=== PATIENT | female | born 1965 | race American Indian/Alaskan Native ===

== ENCOUNTER 2016-11-19 16:03 | Inpatient (IN) | payer BC, OTHER ==
[2016-11-19] MEDS ORDERED: ATIVAN ONE (16:08)
[2016-11-19] MEDS ORDERED: KEPPRA 1,000 MG/NS 0.75% 100ML 1,000 MG/100 ML BAG IV ONE ×2 (16:09→16:13)
[2016-11-19] MEDS ORDERED: NACL 0.9% 1000 ML 1,000 ML IV ONE (16:18)
--- NOTE | 2016-11-19 16:23 | Emergency Department Report ---
ED Seizure HPI - General Chief Complaint: Seizure Stated Complaint: SEIZURES Time Seen by Provider: 11/19/16 16:18 Source: family, EMS Mode of arrival: Stretcher Limitations: Altered Mental Status - History of Present Illness Initial Comments: 51-year-old female here with complaint of seizure. Patient has known history of seizures and has had, according to family, 9 seizures today. Each seizure has been approximately 1-2 minutes in length. It is tonic-clonic in nature. Prior to this today she's not had a seizure for over a month. She is on 3 seizure medications. She is followed by neurologist in [place]. According to family she states that she has not been feeling well today. No fevers chills nausea vomiting. Arrival she is postictal. EMS gave her 2 mg of Ativan in the ambulance. MD Complaint: seizure -: Sudden Description of Episode: tonic-clonic movement Witnessed:: Yes Seizure History: known seizure disorder, compliant with medication Place: home Possible Precipitating Event: none Associated Symptoms: malaise, tongue injury. denies: chest pain, confusion, cough, diaphoresis, fever/chills, loss of appetite, rash, shortness of breath, weakness Treatments Prior to Arrival: none - Related Data Allergies Allergy/AdvReac Type Severity Reaction Status Date / Time No Known Allergies Allergy Verified 11/19/16 16:13 ED Review of Systems ROS: Stated complaint: SEIZURES Other details as noted in HPI Comment: Unobtainable due to pts medical conditions ED Past Medical Hx - Past Medical History Hx Hypertension: Yes Hx Seizures: Yes - Family History Family history: no significant - Social History Smoking Status: Unknown if ever smoked ED Physical Exam - General Limitations: Altered Mental Status General appearance: obtunded - Head Head exam: Present: atraumatic, normocephalic - Eye Eye exam: Present: PERRL, EOMI - ENT ENT exam: Present: normal exam - Neck Neck exam: Present: normal inspection - Respiratory Respiratory exam: Present: normal lung sounds bilaterally, other (initial hypoxia, jaw thrust performed on arrival). Absent: respiratory distress, wheezes, rales - Cardiovascular Cardiovascular Exam: Present: normal rhythm, tachycardia. Absent: bradycardia - GI/Abdominal GI/Abdominal exam: Present: soft - Back Exam Back exam: Present: normal inspection - Neurological Exam Neurological exam: Present: alert, oriented X3 - Skin Skin exam: Absent: warm, dry ED Course Vital Signs 11/19/16 11/19/16 16:09 16:45 Temperature 98.3 F 98.3 F Pulse Rate 102 H 95 H Respiratory 16 15 Rate Blood Pressure 125/79 Blood Pressure 117/76 [Right] O2 Sat by Pulse 99 100 Oximetry ED Medical Decision Making - Lab Data Result diagrams: 11/19/16 Unknown 11/19/16 Unknown Laboratory Results - last 24 hr 11/19/16 11/19/16 11/19/16 16:15 16:15 Unknown WBC 9.9 RBC 4.48 Hgb 9.9 L Hct 32.1 MCV 72 L MCH 22 L MCHC 31 RDW 16.3 H Plt Count 222 Seg Neutrophils % Cable Supervisor Sodium Potassium Chloride Carbon Dioxide Anion Gap BUN Creatinine Estimated GFR BUN/Creatinine Ratio Glucose Calcium Total Bilirubin ALT Alkaline Phosphatase Total Protein Albumin Albumin/Globulin Ratio Urine Color Straw Urine Turbidity Clear Urine pH 5.0 Ur Specific [place] 1.013 Urine Protein 100 mg/dl Urine Glucose (UA) Neg Urine Ketones Tr Urine Blood Lg Urine Nitrite Neg Urine Bilirubin Neg Urine Urobilinogen < 2.0 Ur Leukocyte Esterase Neg Urine WBC (Auto) 2.0 Urine RBC (Auto) 1.0 U Epithel Cells (Auto) 1.0 Urine Bacteria (Auto) 1+ Urine Mucus Few Urine Opiates Screen Presumptive negative Urine Methadone Screen Presumptive negative Ur Barbiturates Screen Presumptive negative Ur Phencyclidine Scrn Presumptive negative Ur Amphetamines Screen Presumptive negative U Benzodiazepines Scrn Presumptive negative Urine Cocaine Screen Presumptive negative U Marijuana (THC) Screen Presumptive negative Drugs of Abuse Note Disclamer Plasma/Serum Alcohol 11/19/16 11/19/16 Unknown Unknown WBC RBC Hgb Hct MCV MCH MCHC RDW Plt Count Seg Neutrophils % Sodium 139 Potassium 4.6 Chloride 99.8 Carbon Dioxide 15 L Anion Gap 29 BUN 10 Creatinine 1.1 Estimated GFR > 60 BUN/Creatinine Ratio 9.09 Glucose 90 Calcium 8.8 Total Bilirubin 0.20 ALT 13 Alkaline Phosphatase 62 Total Protein 7.9 Albumin 4.6 Albumin/Globulin Ratio 1.4 Urine Color Urine Turbidity Urine pH Ur Specific [place] Urine Protein Urine Glucose (UA) Urine Ketones Urine Blood Urine Nitrite Urine Bilirubin Urine Urobilinogen Ur Leukocyte Esterase Urine WBC (Auto) Urine RBC (Auto) U Epithel Cells (Auto) Urine Bacteria (Auto) Urine Mucus Urine Opiates Screen Urine Methadone Screen Ur Barbiturates Screen Ur Phencyclidine Scrn Ur Amphetamines Screen U Benzodiazepines Scrn Urine Cocaine Screen U Marijuana (THC) Screen Drugs of Abuse Note Plasma/Serum Alcohol < 0.01 - Medical Decision Making Patient is a 51-year-old female with known seizure disorder here with seizures today. She's not had a seizure for over a month. According to family she's been taking her medications. On arrival she is postictal and minimally responsive. She received 2 mg of Ativan by EMS. I initiated a dose of 1000 mg of Keppra IV. I do not suspect that she takes this medication long-term. According to family states Vimpat and 2 other seizure medications that they did not remember. Plan to check labs UA chest x-ray and likely admit given multiple seizures today. Labs are essentially unremarkable. Patient does have a slightly low bicarbonate level which is likely related to multiple seizures. Plan to admit the patient to the hospitalist service. She is still fairly somnolent at this point. Portions of this chart were dictated with dictation software. There may be dictation errors contained within this note. Critical care attestation.: If time is entered above; I have spent that time in minutes in the direct care of this critically ill patient, excluding procedure time. ED Disposition Clinical Impression: Seizure Disposition: [id number] OP ADMIT IP TO THIS HOSP Is pt being admited?: Yes Condition: Stable Referrals: PRIMARY CARE, [Primary Care Provider] - 3-5 Days
[2016-11-19 16:24] LABS: Urine Drugs of Abuse Note Disclamer
[2016-11-19 16:34] LABS: Bacteria,Urine 1+ /HPF (Negative); Bilirubin,Urine NEG (Negative); Blood,Urine LG (Negative); Ketones,Urine TR mg/dL (Negative); Leukocyte Esterase,Urine NEG (Negative); Mucus,Urine FEW /HPF; Nitrite,Urine NEG (Negative); Urobilinogen,Urine < 2.0 mg/dL (<2.0)
[2016-11-19 16:52] LABS: Hematocrit 32.1 % (30.3-42.9); Hemoglobin 9.9 gm/dl (10.1-14.3); Mean Corpuscular HGB Conc 31 % (30-34); Mean Corpuscular Volume 72 fl (79-97); Platelet Count 222 K/mm3 (140-440); Red Blood Count 4.48 M/mm3 (3.65-5.03); Red Cell Distribution Width 16.3 % (13.2-15.2); White Blood Count 9.9 K/mm3 (4.5-11.0)
[2016-11-19 16:54] LABS: Mean Corpuscular Hemoglobin 22 pg (28-32)
[2016-11-19 17:13] LABS: Alanine Aminotransferase 13 units/L (7-56); Albumin 4.6 g/dL (3.9-5); Albumin/Globulin Ratio 1.4 %; Alkaline Phosphatase 62 units/L (35-129); Anion Gap 29 mmol/L; BUN/Creatinine Ratio 9.09; Blood Urea Nitrogen 10 mg/dL (7-17); Calcium 8.8 mg/dL (8.4-10.2); Carbon Dioxide 15 mmol/L (22-30); Chloride 99.8 mmol/L (98-107); Glucose 90 mg/dL (65-100); Potassium 4.6 mmol/L (3.6-5.0); Sodium 139 mmol/L (137-145); Total Protein 7.9 g/dL (6.3-8.2)
[2016-11-19 17:27] LABS: Basophils % (Manual) 0 % (0.0-1.8); Blastocytes % (Manual) 0 %; Eosinophils % (Manual) 0 % (0.0-4.3)
[2016-11-19 17:29] LABS: Elliptocytes 1+; Ovalocytes Few
[2016-11-19 17:31] LABS: Anisocytosis 1+; Diff Status Complete
--- NOTE | 2016-11-19 18:17 | XRay Report ---
FINAL REPORT PROCEDURE: Chest. TECHNIQUE: Portable AP view. HISTORY: Seizure, altered mental status. COMPARISON: No prior studies are available for comparison. FINDINGS: The patient is rotated to the right. The heart size is normal. There is mild tortuosity of the thoracic aorta. The lungs are grossly clear. There are no pleural effusions. The soft tissues and regional skeleton are unremarkable. IMPRESSION: No evidence of acute disease.
[2016-11-19] MEDS ORDERED: AMBIEN PO PRN (20:09)
[2016-11-19] MEDS ORDERED: DILAUDID IV PRN (20:09)
[2016-11-19] MEDS ORDERED: ZOFRAN IV PRN (20:09)
[2016-11-19] MEDS ORDERED: MILK OF MAGNESIA PO PRN (20:09)
[2016-11-19] MEDS ORDERED: DULCOLAX PR PRN (20:09)
[2016-11-19] MEDS ORDERED: TYLENOL PO PRN (20:09)
[2016-11-19] MEDS ORDERED: PERCOCET 5/325 PO PRN (20:09)
--- NOTE | 2016-11-19 20:09 | History and Physical Report ---
History of Present Illness Date of examination: 11/19/16 Date of admission: 11/19/16 Chief complaint: Seizures recurrent today History of present illness: History of Present Illness 51-year-old female here with complaint of seizure. Patient has known history of seizures and has had, according to family, 9 seizures today. Each seizure has been approximately 1-2 minutes in length. It is tonic-clonic in nature. Prior to this today she's not had a seizure for over a month. She is on 3 seizure medications. She is followed by neurologist in [place]. According to family she states that she has not been feeling well today. No fevers chills nausea vomiting. Arrival she is postictal. EMS gave her 2 mg of Ativan in the ambulance. MD Complaint: seizure -: Sudden Description of Episode: tonic-clonic movement Witnessed:: Yes Seizure History: known seizure disorder, compliant with medication Place: home Possible Precipitating Event: none Associated Symptoms: malaise, tongue injury. denies: chest pain, confusion, cough, diaphoresis, fever/chills, loss of appetite, rash, shortness of breath, weakness Treatments Prior to Arrival: none Past Medical History Hx Hypertension: Yes Hx Seizures: Yes - Family History Family history: no significant - Social History Smoking Status: Unknown if ever smoked Medications and Allergies Allergies Allergy/AdvReac Type Severity Reaction Status Date / Time No Known Allergies Allergy Verified 11/19/16 16:13 Home Medications Medication Instructions Recorded Confirmed Last Taken Type Lacosamide [Vimpat] 50 mg PO Q12HR 11/19/16 11/19/16 Unknown History OXcarbazepine [Trileptal] 300 mg PO BID 11/19/16 11/19/16 Unknown History lamoTRIgine [LaMICtal] 100 mg PO BID 11/19/16 11/19/16 Unknown History Review of Systems Constitutional: no weight loss, no weight gain, no fever, no chills, no sweats, no night sweats Ears, nose, mouth and throat: no dysphagia, no hoarseness, no sore throat Breasts: deferred Cardiovascular: no chest pain, no orthopnea, no palpitations, no rapid/ irregular heart beat, no edema, no syncope, no lightheadedness, no shortness of breath Respiratory: no cough, no cough with sputum, no excessive sputum, no hemoptysis , no shortness of breath, no dyspnea on exertion Gastrointestinal: no abdominal pain, no nausea, no vomiting, no diarrhea, no constipation, no change in bowel habits, no hematemesis, no coffee ground emesis Genitourinary Female: no pelvic pain, no flank pain, no menorrhagia, no dysuria , no urinary frequency, no urgency, no stress incontinence, no post void dribbling Rectal: no pain, no incontinence, no bleeding Musculoskeletal: no neck stiffness, no neck pain, no shooting arm pain, no arm numbness/tingling, no low back pain, no shooting leg pain, no leg numbness/ tingling, no redness of joints Integumentary: no rash, no pruritis, no redness, no sores, no wounds, no jaundice, no boils, no blisters Neurological: seizures, no syncope Psychiatric: no anxiety, no memory loss, no change in sleep habits, no sleep disturbances, no insomnia, no hypersomnia, no change in appetite, no change in libido Endocrine: no cold intolerance, no heat intolerance, no polyphagia, no excessive thirst, no polydipsia, no polyuria Hematologic/Lymphatic: no easy bruising, no easy bleeding Allergic/Immunologic: no urticaria, no allergic rhinitis, no wheezing Exam - Constitutional Vitals: Temp Pulse Resp BP Pulse Ox 98.4 F 96 H 18 126/79 100 11/19/16 19:43 11/19/16 19:43 11/19/16 19:43 11/19/16 19:43 11/19/16 19:43 General appearance: Present: no acute distress, well-nourished - EENT Eyes: Present: PERRL ENT: hearing intact, clear oral mucosa - Neck Neck: Present: supple, normal ROM - Respiratory Respiratory effort: normal Respiratory: bilateral: CTA - Cardiovascular Heart rate: 70 Rhythm: regular Heart Sounds: Present: S1 & S2. Absent: rub, click - Extremities Extremities: no ischemia, pulses intact, pulses symmetrical, No edema Peripheral Pulses: within normal limits - Abdominal General gastrointestinal: Present: soft, non-tender, non-distended, normal bowel sounds Female genitourinary: Present: normal - Integumentary Integumentary: Present: clear, warm, dry - Musculoskeletal Musculoskeletal: strength equal bilaterally, other (Altered sensorium) - Psychiatric Psychiatric: appropriate mood/affect, intact judgment & insight - Neurologic Neurologic: CNII-XII intact, moves all extremities - Allied Health Allied health notes reviewed: nursing, case management Results - Labs CBC & Chem 7: 11/19/16 Unknown 11/19/16 Unknown Labs: Laboratory Last Values WBC 9.9 K/mm3 (4.5-11.0) 11/19/16 Unknown RBC 4.48 M/mm3 (3.65-5.03) 11/19/16 Unknown Hgb 9.9 gm/dl (10.1-14.3) L 11/19/16 Unknown Hct 32.1 % (30.3-42.9) 11/19/16 Unknown MCV 72 fl (79-97) L 11/19/16 Unknown MCH 22 pg (28-32) L 11/19/16 Unknown MCHC 31 % (30-34) 11/19/16 Unknown RDW 16.3 % (13.2-15.2) H 11/19/16 Unknown Plt Count 222 K/mm3 (140-440) 11/19/16 Unknown Add Manual Diff Complete 11/19/16 Unknown Total Counted 100 11/19/16 Unknown Seg Neutrophils % Hydroponics Grower 11/19/16 Unknown Seg Neuts % (Manual) 94.0 % (40.0-70.0) H 11/19/16 Unknown Band Neutrophils % 0 % 11/19/16 Unknown Lymphocytes % (Manual) 4.0 % (13.4-35.0) L 11/19/16 Unknown Reactive Lymphs % (Man) 0 % 11/19/16 Unknown Monocytes % (Manual) 2.0 % (0.0-7.3) 11/19/16 Unknown Eosinophils % (Manual) 0 % (0.0-4.3) 11/19/16 Unknown Basophils % (Manual) 0 % (0.0-1.8) 11/19/16 Unknown Metamyelocytes % 0 % 11/19/16 Unknown Myelocytes % 0 % 11/19/16 Unknown Promyelocytes % 0 % 11/19/16 Unknown Blast Cells % 0 % 11/19/16 Unknown Nucleated RBC % Not Reportable 11/19/16 Unknown Seg Neutrophils # Man 9.3 K/mm3 (1.8-7.7) H 11/19/16 Unknown Band Neutrophils # 0.0 K/mm3 11/19/16 Unknown Lymphocytes # (Manual) 0.4 K/mm3 (1.2-5.4) L 11/19/16 Unknown Abs React Lymphs (Man) 0.0 K/mm3 11/19/16 Unknown Monocytes # (Manual) 0.2 K/mm3 (0.0-0.8) 11/19/16 Unknown Eosinophils # (Manual) 0.0 K/mm3 (0.0-0.4) 11/19/16 Unknown Basophils # (Manual) 0.0 K/mm3 (0.0-0.1) 11/19/16 Unknown Metamyelocytes # 0.0 K/mm3 11/19/16 Unknown Myelocytes # 0.0 K/mm3 11/19/16 Unknown Promyelocytes # 0.0 K/mm3 11/19/16 Unknown Blast Cells # 0.0 K/mm3 11/19/16 Unknown WBC Morphology Not Reportable 11/19/16 Unknown Hypersegmented Neuts Not Reportable 11/19/16 Unknown Hyposegmented Neuts Not Reportable 11/19/16 Unknown Hypogranular Neuts Not Reportable 11/19/16 Unknown Smudge Cells Not Reportable 11/19/16 Unknown Toxic Granulation Not Reportable 11/19/16 Unknown Toxic Vacuolation Not Reportable 11/19/16 Unknown Dohle Bodies Not Reportable 11/19/16 Unknown Pelger-Huet Anomaly Not Reportable 11/19/16 Unknown Dany Rods Not Reportable 11/19/16 Unknown Platelet Estimate Appears normal 11/19/16 Unknown Clumped Platelets Not Reportable 11/19/16 Unknown Plt Clumps, EDTA Not Reportable 11/19/16 Unknown Large Platelets Not Reportable 11/19/16 Unknown Giant Platelets Not Reportable 11/19/16 Unknown Platelet Satelliting Not Reportable 11/19/16 Unknown Plt Morphology Comment Not Reportable 11/19/16 Unknown RBC Morphology Not Reportable 11/19/16 Unknown Dimorphic RBCs Not Reportable 11/19/16 Unknown Polychromasia Not Reportable 11/19/16 Unknown Hypochromasia Not Reportable 11/19/16 Unknown Poikilocytosis Not Reportable 11/19/16 Unknown Anisocytosis 1+ 11/19/16 Unknown Microcytosis Not Reportable 11/19/16 Unknown Macrocytosis Not Reportable 11/19/16 Unknown Spherocytes Not Reportable 11/19/16 Unknown Pappenheimer Bodies Not Reportable 11/19/16 Unknown Sickle Cells Not Reportable 11/19/16 Unknown Target Cells Not Reportable 11/19/16 Unknown Tear Drop Cells Not Reportable 11/19/16 Unknown Ovalocytes Few 11/19/16 Unknown Helmet Cells Not Reportable 11/19/16 Unknown [place]ine Bodies Not Reportable 11/19/16 Unknown [place] Rings Not Reportable 11/19/16 Unknown [place] Cells Not Reportable 11/19/16 Unknown Bite Cells Not Reportable 11/19/16 Unknown Crenated Cell Not Reportable 11/19/16 Unknown Elliptocytes 1+ 11/19/16 Unknown Acanthocytes (Spur) Not Reportable 11/19/16 Unknown Rouleaux Not Reportable 11/19/16 Unknown Hemoglobin C Crystals Not Reportable 11/19/16 Unknown Schistocytes Not Reportable 11/19/16 Unknown Malaria parasites Not Reportable 11/19/16 Unknown Anjel Bodies Not Reportable 11/19/16 Unknown Hem Pathologist Commnt No 11/19/16 Unknown Sodium 139 mmol/L (137-145) 11/19/16 Unknown Potassium 4.6 mmol/L (3.6-5.0) 11/19/16 Unknown Chloride 99.8 mmol/L (98-107) 11/19/16 Unknown Carbon Dioxide 15 mmol/L (22-30) L 11/19/16 Unknown Anion Gap 29 mmol/L 11/19/16 Unknown BUN 10 mg/dL (7-17) 11/19/16 Unknown Creatinine 1.1 mg/dL (0.7-1.2) 11/19/16 Unknown Estimated GFR > 60 ml/min 11/19/16 Unknown BUN/Creatinine Ratio 9.09 % 11/19/16 Unknown Glucose 90 mg/dL (65-100) 11/19/16 Unknown Calcium 8.8 mg/dL (8.4-10.2) 11/19/16 Unknown Total Bilirubin 0.20 mg/dL (0.1-1.2) 11/19/16 Unknown AST 32 units/L (5-40) 11/19/16 Unknown ALT 13 units/L (7-56) 11/19/16 Unknown Alkaline Phosphatase 62 units/L (35-129) 11/19/16 Unknown Total Protein 7.9 g/dL (6.3-8.2) 11/19/16 Unknown Albumin 4.6 g/dL (3.9-5) 11/19/16 Unknown Albumin/Globulin Ratio 1.4 % 11/19/16 Unknown Urine Color Straw (Yellow) 11/19/16 16:15 Urine Turbidity Clear (Clear) 11/19/16 16:15 Urine pH 5.0 (5.0-7.0) 11/19/16 16:15 Ur Specific [place] 1.013 (1.003-1.030) 11/19/16 16:15 Urine Protein 100 mg/dl mg/dL (Negative) 11/19/16 16:15 Urine Glucose (UA) Neg mg/dL (Negative) 11/19/16 16:15 Urine Ketones Tr mg/dL (Negative) 11/19/16 16:15 Urine Blood Lg (Negative) 11/19/16 16:15 Urine Nitrite Neg (Negative) 11/19/16 16:15 Urine Bilirubin Neg (Negative) 11/19/16 16:15 Urine Urobilinogen < 2.0 mg/dL (<2.0) 11/19/16 16:15 Ur Leukocyte Esterase Neg (Negative) 11/19/16 16:15 Urine WBC (Auto) 2.0 /HPF (0.0-6.0) 11/19/16 16:15 Urine RBC (Auto) 1.0 /HPF (0.0-6.0) 11/19/16 16:15 U Epithel Cells (Auto) 1.0 /HPF (0-13.0) 11/19/16 16:15 Urine Bacteria (Auto) 1+ /HPF (Negative) 11/19/16 16:15 Urine Mucus Few /HPF 11/19/16 16:15 Urine Opiates Screen Presumptive negative 11/19/16 16:15 Urine Methadone Screen Presumptive negative 11/19/16 16:15 Ur Barbiturates Screen Presumptive negative 11/19/16 16:15 Ur Phencyclidine Scrn Presumptive negative 11/19/16 16:15 Ur Amphetamines Screen Presumptive negative 11/19/16 16:15 U Benzodiazepines Scrn Presumptive negative 11/19/16 16:15 Urine Cocaine Screen Presumptive negative 11/19/16 16:15 U Marijuana (THC) Screen Presumptive negative 11/19/16 16:15 Drugs of Abuse Note Disclamer 11/19/16 16:15 Plasma/Serum Alcohol < 0.01 gm% (0-0.07) 11/19/16 Unknown Short CBC 11/19/16 Range/Units Unknown WBC 9.9 (4.5-11.0) K/mm3 Hgb 9.9 L (10.1-14.3) gm/dl Hct 32.1 (30.3-42.9) % Plt Count 222 (140-440) K/mm3 BMP 11/19/16 Unknown Sodium 139 Potassium 4.6 Chloride 99.8 Carbon Dioxide 15 L BUN 10 Creatinine 1.1 Glucose 90 Calcium 8.8 Liver Function 11/19/16 Range/Units Unknown Total Bilirubin 0.20 (0.1-1.2) mg/dL AST 32 (5-40) units/L ALT 13 (7-56) units/L Alkaline Phosphatase 62 (35-129) units/L Albumin 4.6 (3.9-5) g/dL Urine 11/19/16 Range/Units 16:15 Urine Color Straw (Yellow) Urine pH 5.0 (5.0-7.0) Ur Specific [place] 1.013 (1.003-1.030) Urine Protein 100 mg/dl (Negative) mg/dL Urine Glucose (UA) Neg (Negative) mg/dL - Imaging and Cardiology EKG: report reviewed Chest x-ray: report reviewed (NAF) Assessment and Plan Advance Directives: Yes (FC) VTE prophylaxis?: Chemical Plan of care discussed with patient/family: Yes - Patient Problems (1) Uncontrolled seizures Current Visit: Yes Status: Acute Qualifiers: Convulsion type: unspecified Qualified Code(s): R56.9 - Unspecified convulsions Plan to address problem: Patient has multiple seizures today. Will increase dose of Vimpat and give IVPatient has severe side effects with Keppra-hence keppra not initiatd. Neuro electronics recycler consulted (2) HTN (hypertension) Current Visit: Yes Status: Chronic Qualifiers: Hypertension type: essential hypertension Qualified Code(s): I10 - Essential (primary) hypertension Plan to address problem: Not in any BP medicines .Will initiate if necessary (3) DVT prophylaxis Current Visit: Yes Status: Acute Plan to address problem: On Lovenox
[2016-11-19] MEDS: VIMPAT 100 MG in NACL 0.9% 100 ML IV SCH (20:55)
[2016-11-19] MEDS: LOVENOX SUB-Q SCH (21:27)
[2016-11-19] MEDS ORDERED: VIMPAT PO SCH (22:00)
[2016-11-19] MEDS: TRILEPTAL PO SCH (23:00)
[2016-11-19] MEDS: LaMICtal PO SCH (23:00)
[2016-11-20] MEDS: D5NS 1,000 ML IV SCH (01:00)
--- NOTE | 2016-11-20 02:58 | Admit Criteria Form ---
Admission Criteria Documentation: SEIZURE Clinical Indications for Admission to Inpatient Care (Place 'X' for any and all applicable criteria): Admission is indicated for seizure and 1 or more of the following (1)(2)(3)(4)(5 )(6) [X]I. Inpatient admission required rather than observation care (Also use Seizure: Observation Care Criteria as appropriate) because of 1 or more of the following: [ ]1) Altered mental status that is severe or persistent [ ]2) New focal neurologic deficit that is severe or persistent [ ]3) Metabolic disorder (eg, hypoglycemia, hyponatremia) that is severe or persistent [ ]4) Recurrent seizure [ ]5) Outpatient antiseizure regimen cannot be established (eg , patient cannot tolerate medication, initiation requires inpatient care) [X]6) Need for ongoing intravenous infusion of anti-seizure medication [ ]7) Cerebral bleeding, hydrocephalus, or vasospasm monitoring [ ]8) Increased intracranial pressure or cerebral edema monitoring [ ]9) Other conditions, treatment or monitoring requiring inpatient admission [ ]II. Status epilepticus [A] or repetitive seizures not controlled with emergent treatment (6)(8) [ ]III. Brain disorder (eg, tumor, edema, and hydrocephalus) that requiring monitoring or intervention available only at inpatient level of care. [ ]IV. Brain insult (eg, severe trauma, stroke, drug toxicity, or withdrawal) that requires monitoring or intervention available only at inpatient level of care (10)(11) [ ]V. Cardiac arrhythmias of immediate concern Extended stay beyond goal length of stay may be needed for (22) [ ]a) Complications of status epilepticus [ ]b) Refractory status epilepticus [ ]c) Etiology-specific therapy for conditions such as PONY RIDE OPERATOR infection, head injury,eclampsia, severe metabolic abnormalities, and brain tumor [ ]d) Residual neurologic damage, [ ]e) Initiation of significant change to anticonvulsant treatment [ ]f) Older patients (65 years or older) [ ]g) Patient requiring intubation (eg, to protect airway) The original [facility] Referral Source content created by [facility] [place] [employer] has been revised. The portions of the content which have been revised are identified through the use of italic text or in bold, and [facility] [place] [place] has neither reviewed nor approved the modified material. All other unmodified content is copyright [employer] [facility] [place]. Please see references footnoted in the original [facility] edition 2017 Admission Criteria Met: Yes
--- NOTE | 2016-11-20 07:27 | Progress Note ---
<BARRIE STANTON - Last Filed: 11/20/16 09:56> Assessment and Plan Assessment and plan: Uncontrolled seizures Patient postictal Continue on IV Vimpat and Lamictal PO BID. Patient has severe side effects with Keppra-hence keppra not initiatd. We will get MRI if Neurology recommend Nothing by mouth IV fluid hydration Neurology consult Supportive care HTN (hypertension) Patient not on antihpertensive medication. We will initiate if necessary Closely monitor blood pressure Right upper extremity swelling VL Doppler of the right upper extremity ordered to rule out DVT Apply warm compresses to the affected area. Noncompliance Patient noncompliance with her seizure medication counseling done DVT prophylaxis On Lovenox Plan discussed with patient and families. History Interval history: Patient denies any seizure activity, syncope or dizziness. She reports right upper extremity swelling Hospitalist Physical - Constitutional Vitals: Temp Pulse Resp BP Pulse Ox 98.5 F 92 H 20 127/74 99 11/20/16 04:52 11/19/16 22:36 11/20/16 04:51 11/20/16 04:51 11/19/16 22:36 General appearance: Present: no acute distress, well-nourished - EENT Eyes: Present: PERRL ENT: hearing intact - Neck Neck: Present: supple - Respiratory Respiratory effort: normal Respiratory: bilateral: CTA - Cardiovascular Heart rate: 78 Rhythm: regular Heart Sounds: Present: S1 & S2 - Extremities Extremities: no ischemia Peripheral Pulses: within normal limits - Abdominal General gastrointestinal: soft, non-tender - Integumentary Integumentary: Present: clear, warm, dry - Psychiatric Psychiatric: appropriate mood/affect - Neurologic Neurologic: CNII-XII intact - Allied Health Allied health notes reviewed: nursing Results - Labs CBC & Chem 7: 11/20/16 08:41 11/20/16 07:54 Labs: Laboratory Last Values WBC 9.9 K/mm3 (4.5-11.0) 11/19/16 Unknown RBC 4.48 M/mm3 (3.65-5.03) 11/19/16 Unknown Hgb 9.9 gm/dl (10.1-14.3) L 11/19/16 Unknown Hct 32.1 % (30.3-42.9) 11/19/16 Unknown MCV 72 fl (79-97) L 11/19/16 Unknown MCH 22 pg (28-32) L 11/19/16 Unknown MCHC 31 % (30-34) 11/19/16 Unknown RDW 16.3 % (13.2-15.2) H 11/19/16 Unknown Plt Count 222 K/mm3 (140-440) 11/19/16 Unknown Add Manual Diff Complete 11/19/16 Unknown Total Counted 100 11/19/16 Unknown Seg Neutrophils % Lead Investigator 11/19/16 Unknown Seg Neuts % (Manual) 94.0 % (40.0-70.0) H 11/19/16 Unknown Band Neutrophils % 0 % 11/19/16 Unknown Lymphocytes % (Manual) 4.0 % (13.4-35.0) L 11/19/16 Unknown Reactive Lymphs % (Man) 0 % 11/19/16 Unknown Monocytes % (Manual) 2.0 % (0.0-7.3) 11/19/16 Unknown Eosinophils % (Manual) 0 % (0.0-4.3) 11/19/16 Unknown Basophils % (Manual) 0 % (0.0-1.8) 11/19/16 Unknown Metamyelocytes % 0 % 11/19/16 Unknown Myelocytes % 0 % 11/19/16 Unknown Promyelocytes % 0 % 11/19/16 Unknown Blast Cells % 0 % 11/19/16 Unknown Nucleated RBC % Not Reportable 11/19/16 Unknown Seg Neutrophils # Man 9.3 K/mm3 (1.8-7.7) H 11/19/16 Unknown Band Neutrophils # 0.0 K/mm3 11/19/16 Unknown Lymphocytes # (Manual) 0.4 K/mm3 (1.2-5.4) L 11/19/16 Unknown Abs React Lymphs (Man) 0.0 K/mm3 11/19/16 Unknown Monocytes # (Manual) 0.2 K/mm3 (0.0-0.8) 11/19/16 Unknown Eosinophils # (Manual) 0.0 K/mm3 (0.0-0.4) 11/19/16 Unknown Basophils # (Manual) 0.0 K/mm3 (0.0-0.1) 11/19/16 Unknown Metamyelocytes # 0.0 K/mm3 11/19/16 Unknown Myelocytes # 0.0 K/mm3 11/19/16 Unknown Promyelocytes # 0.0 K/mm3 11/19/16 Unknown Blast Cells # 0.0 K/mm3 11/19/16 Unknown WBC Morphology Not Reportable 11/19/16 Unknown Hypersegmented Neuts Not Reportable 11/19/16 Unknown Hyposegmented Neuts Not Reportable 11/19/16 Unknown Hypogranular Neuts Not Reportable 11/19/16 Unknown Smudge Cells Not Reportable 11/19/16 Unknown Toxic Granulation Not Reportable 11/19/16 Unknown Toxic Vacuolation Not Reportable 11/19/16 Unknown Dohle Bodies Not Reportable 11/19/16 Unknown Pelger-Huet Anomaly Not Reportable 11/19/16 Unknown Dany Rods Not Reportable 11/19/16 Unknown Platelet Estimate Appears normal 11/19/16 Unknown Clumped Platelets Not Reportable 11/19/16 Unknown Plt Clumps, EDTA Not Reportable 11/19/16 Unknown Large Platelets Not Reportable 11/19/16 Unknown Giant Platelets Not Reportable 11/19/16 Unknown Platelet Satelliting Not Reportable 11/19/16 Unknown Plt Morphology Comment Not Reportable 11/19/16 Unknown RBC Morphology Not Reportable 11/19/16 Unknown Dimorphic RBCs Not Reportable 11/19/16 Unknown Polychromasia Not Reportable 11/19/16 Unknown Hypochromasia Not Reportable 11/19/16 Unknown Poikilocytosis Not Reportable 11/19/16 Unknown Anisocytosis 1+ 11/19/16 Unknown Microcytosis Not Reportable 11/19/16 Unknown Macrocytosis Not Reportable 11/19/16 Unknown Spherocytes Not Reportable 11/19/16 Unknown Pappenheimer Bodies Not Reportable 11/19/16 Unknown Sickle Cells Not Reportable 11/19/16 Unknown Target Cells Not Reportable 11/19/16 Unknown Tear Drop Cells Not Reportable 11/19/16 Unknown Ovalocytes Few 11/19/16 Unknown Helmet Cells Not Reportable 11/19/16 Unknown Almanza-Labelle Bodies Not Reportable 11/19/16 Unknown [place] Rings Not Reportable 11/19/16 Unknown [place] Cells Not Reportable 11/19/16 Unknown Bite Cells Not Reportable 11/19/16 Unknown Crenated Cell Not Reportable 11/19/16 Unknown Elliptocytes 1+ 11/19/16 Unknown Acanthocytes (Spur) Not Reportable 11/19/16 Unknown Rouleaux Not Reportable 11/19/16 Unknown Hemoglobin C Crystals Not Reportable 11/19/16 Unknown Schistocytes Not Reportable 11/19/16 Unknown Malaria parasites Not Reportable 11/19/16 Unknown Anjel Bodies Not Reportable 11/19/16 Unknown Hem Pathologist Commnt No 11/19/16 Unknown Sodium 139 mmol/L (137-145) 11/19/16 Unknown Potassium 4.6 mmol/L (3.6-5.0) 11/19/16 Unknown Chloride 99.8 mmol/L (98-107) 11/19/16 Unknown Carbon Dioxide 15 mmol/L (22-30) L 11/19/16 Unknown Anion Gap 29 mmol/L 11/19/16 Unknown BUN 10 mg/dL (7-17) 11/19/16 Unknown Creatinine 1.1 mg/dL (0.7-1.2) 11/19/16 Unknown Estimated GFR > 60 ml/min 11/19/16 Unknown BUN/Creatinine Ratio 9.09 % 11/19/16 Unknown Glucose 90 mg/dL (65-100) 11/19/16 Unknown Calcium 8.8 mg/dL (8.4-10.2) 11/19/16 Unknown Total Bilirubin 0.20 mg/dL (0.1-1.2) 11/19/16 Unknown AST 32 units/L (5-40) 11/19/16 Unknown ALT 13 units/L (7-56) 11/19/16 Unknown Alkaline Phosphatase 62 units/L (35-129) 11/19/16 Unknown Total Protein 7.9 g/dL (6.3-8.2) 11/19/16 Unknown Albumin 4.6 g/dL (3.9-5) 11/19/16 Unknown Albumin/Globulin Ratio 1.4 % 11/19/16 Unknown Urine Color Straw (Yellow) 11/19/16 16:15 Urine Turbidity Clear (Clear) 11/19/16 16:15 Urine pH 5.0 (5.0-7.0) 11/19/16 16:15 Ur Specific [place] 1.013 (1.003-1.030) 11/19/16 16:15 Urine Protein 100 mg/dl mg/dL (Negative) 11/19/16 16:15 Urine Glucose (UA) Neg mg/dL (Negative) 11/19/16 16:15 Urine Ketones Tr mg/dL (Negative) 11/19/16 16:15 Urine Blood Lg (Negative) 11/19/16 16:15 Urine Nitrite Neg (Negative) 11/19/16 16:15 Urine Bilirubin Neg (Negative) 11/19/16 16:15 Urine Urobilinogen < 2.0 mg/dL (<2.0) 11/19/16 16:15 Ur Leukocyte Esterase Neg (Negative) 11/19/16 16:15 Urine WBC (Auto) 2.0 /HPF (0.0-6.0) 11/19/16 16:15 Urine RBC (Auto) 1.0 /HPF (0.0-6.0) 11/19/16 16:15 U Epithel Cells (Auto) 1.0 /HPF (0-13.0) 11/19/16 16:15 Urine Bacteria (Auto) 1+ /HPF (Negative) 11/19/16 16:15 Urine Mucus Few /HPF 11/19/16 16:15 Urine Opiates Screen Presumptive negative 11/19/16 16:15 Urine Methadone Screen Presumptive negative 11/19/16 16:15 Ur Barbiturates Screen Presumptive negative 11/19/16 16:15 Ur Phencyclidine Scrn Presumptive negative 11/19/16 16:15 Ur Amphetamines Screen Presumptive negative 11/19/16 16:15 U Benzodiazepines Scrn Presumptive negative 11/19/16 16:15 Urine Cocaine Screen Presumptive negative 11/19/16 16:15 U Marijuana (THC) Screen Presumptive negative 11/19/16 16:15 Drugs of Abuse Note Disclamer 11/19/16 16:15 Plasma/Serum Alcohol < 0.01 gm% (0-0.07) 11/19/16 Unknown <RAMO JOSHI - Last Filed: 11/20/16 21:20> Assessment and Plan Assessment and plan: I saw and evaluated the patient. I agree with the findings and the plan of care as documented in the Nurse Practitioner's~note, with the following corrections and additions. Hospitalist Physical - Constitutional Vitals: Temp Pulse Resp BP Pulse Ox 98.5 F 78 16 124/76 99 11/20/16 08:29 11/20/16 08:29 11/20/16 08:29 11/20/16 08:29 11/20/16 08:29 Results - Labs CBC & Chem 7: 11/20/16 08:41 11/20/16 07:54 Labs: Laboratory Last Values WBC 8.7 K/mm3 (4.5-11.0) 11/20/16 08:41 RBC 4.03 M/mm3 (3.65-5.03) 11/20/16 08:41 Hgb 9.0 gm/dl (10.1-14.3) L 11/20/16 08:41 Hct 28.6 % (30.3-42.9) L 11/20/16 08:41 MCV 71 fl (79-97) L 11/20/16 08:41 MCH 22 pg (28-32) L 11/20/16 08:41 MCHC 32 % (30-34) 11/20/16 08:41 RDW 15.6 % (13.2-15.2) H 11/20/16 08:41 Plt Count 177 K/mm3 (140-440) 11/20/16 08:41 Lymph % (Auto) 13.0 % (13.4-35.0) L 11/20/16 08:41 [place] % (Auto) 8.7 % (0.0-7.3) H 11/20/16 08:41 Eos % (Auto) 0.1 % (0.0-4.3) 11/20/16 08:41 Baso % (Auto) 0.3 % (0.0-1.8) 11/20/16 08:41 Lymph # 1.1 K/mm3 (1.2-5.4) L 11/20/16 08:41 [place] # 0.8 K/mm3 (0.0-0.8) 11/20/16 08:41 Eos # 0.0 K/mm3 (0.0-0.4) 11/20/16 08:41 Baso # 0.0 K/mm3 (0.0-0.1) 11/20/16 08:41 Add Manual Diff Complete 11/19/16 Unknown Total Counted 100 11/19/16 Unknown Seg Neutrophils % 77.9 % (40.0-70.0) H 11/20/16 08:41 Seg Neuts % (Manual) 94.0 % (40.0-70.0) H 11/19/16 Unknown Band Neutrophils % 0 % 11/19/16 Unknown Lymphocytes % (Manual) 4.0 % (13.4-35.0) L 11/19/16 Unknown Reactive Lymphs % (Man) 0 % 11/19/16 Unknown Monocytes % (Manual) 2.0 % (0.0-7.3) 11/19/16 Unknown Eosinophils % (Manual) 0 % (0.0-4.3) 11/19/16 Unknown Basophils % (Manual) 0 % (0.0-1.8) 11/19/16 Unknown Metamyelocytes % 0 % 11/19/16 Unknown Myelocytes % 0 % 11/19/16 Unknown Promyelocytes % 0 % 11/19/16 Unknown Blast Cells % 0 % 11/19/16 Unknown Nucleated RBC % Not Reportable 11/19/16 Unknown Seg Neutrophils # 6.8 K/mm3 (1.8-7.7) 11/20/16 08:41 Seg Neutrophils # Man 9.3 K/mm3 (1.8-7.7) H 11/19/16 Unknown Band Neutrophils # 0.0 K/mm3 11/19/16 Unknown Lymphocytes # (Manual) 0.4 K/mm3 (1.2-5.4) L 11/19/16 Unknown Abs React Lymphs (Man) 0.0 K/mm3 11/19/16 Unknown Monocytes # (Manual) 0.2 K/mm3 (0.0-0.8) 11/19/16 Unknown Eosinophils # (Manual) 0.0 K/mm3 (0.0-0.4) 11/19/16 Unknown Basophils # (Manual) 0.0 K/mm3 (0.0-0.1) 11/19/16 Unknown Metamyelocytes # 0.0 K/mm3 11/19/16 Unknown Myelocytes # 0.0 K/mm3 11/19/16 Unknown Promyelocytes # 0.0 K/mm3 11/19/16 Unknown Blast Cells # 0.0 K/mm3 11/19/16 Unknown WBC Morphology Not Reportable 11/19/16 Unknown Hypersegmented Neuts Not Reportable 11/19/16 Unknown Hyposegmented Neuts Not Reportable 11/19/16 Unknown Hypogranular Neuts Not Reportable 11/19/16 Unknown Smudge Cells Not Reportable 11/19/16 Unknown Toxic Granulation Not Reportable 11/19/16 Unknown Toxic Vacuolation Not Reportable 11/19/16 Unknown Dohle Bodies Not Reportable 11/19/16 Unknown Pelger-Huet Anomaly Not Reportable 11/19/16 Unknown Dany Rods Not Reportable 11/19/16 Unknown Platelet Estimate Appears normal 11/19/16 Unknown Clumped Platelets Not Reportable 11/19/16 Unknown Plt Clumps, EDTA Not Reportable 11/19/16 Unknown Large Platelets Not Reportable 11/19/16 Unknown Giant Platelets Not Reportable 11/19/16 Unknown Platelet Satelliting Not Reportable 11/19/16 Unknown Plt Morphology Comment Not Reportable 11/19/16 Unknown RBC Morphology Not Reportable 11/19/16 Unknown Dimorphic RBCs Not Reportable 11/19/16 Unknown Polychromasia Not Reportable 11/19/16 Unknown Hypochromasia Not Reportable 11/19/16 Unknown Poikilocytosis Not Reportable 11/19/16 Unknown Anisocytosis 1+ 11/19/16 Unknown Microcytosis Not Reportable 11/19/16 Unknown Macrocytosis Not Reportable 11/19/16 Unknown Spherocytes Not Reportable 11/19/16 Unknown Pappenheimer Bodies Not Reportable 11/19/16 Unknown Sickle Cells Not Reportable 11/19/16 Unknown Target Cells Not Reportable 11/19/16 Unknown Tear Drop Cells Not Reportable 11/19/16 Unknown Ovalocytes Few 11/19/16 Unknown Helmet Cells Not Reportable 11/19/16 Unknown Almanza-Labelle Bodies Not Reportable 11/19/16 Unknown [place] Rings Not Reportable 11/19/16 Unknown [place] Cells Not Reportable 11/19/16 Unknown Bite Cells Not Reportable 11/19/16 Unknown Crenated Cell Not Reportable 11/19/16 Unknown Elliptocytes 1+ 11/19/16 Unknown Acanthocytes (Spur) Not Reportable 11/19/16 Unknown Rouleaux Not Reportable 11/19/16 Unknown Hemoglobin C Crystals Not Reportable 11/19/16 Unknown Schistocytes Not Reportable 11/19/16 Unknown Malaria parasites Not Reportable 11/19/16 Unknown Anjel Bodies Not Reportable 11/19/16 Unknown Hem Pathologist Commnt No 11/19/16 Unknown Sodium 139 mmol/L (137-145) 11/20/16 07:54 Potassium 3.5 mmol/L (3.6-5.0) L D 11/20/16 07:54 Chloride 104.9 mmol/L (98-107) 11/20/16 07:54 Carbon Dioxide 19 mmol/L (22-30) L 11/20/16 07:54 Anion Gap 19 mmol/L 11/20/16 07:54 BUN 11 mg/dL (7-17) 11/20/16 07:54 Creatinine 0.9 mg/dL (0.7-1.2) 11/20/16 07:54 Estimated GFR > 60 ml/min 11/20/16 07:54 BUN/Creatinine Ratio 12.22 % 11/20/16 07:54 Glucose 95 mg/dL (65-100) 11/20/16 07:54 Calcium 8.4 mg/dL (8.4-10.2) 11/20/16 07:54 Total Bilirubin 0.40 mg/dL (0.1-1.2) 11/20/16 07:54 AST 46 units/L (5-40) H 11/20/16 07:54 ALT 13 units/L (7-56) 11/20/16 07:54 Alkaline Phosphatase 52 units/L (35-129) 11/20/16 07:54 Total Protein 7.2 g/dL (6.3-8.2) 11/20/16 07:54 Albumin 3.7 g/dL (3.9-5) L 11/20/16 07:54 Albumin/Globulin Ratio 1.1 % 11/20/16 07:54 Urine Color Straw (Yellow) 11/19/16 16:15 Urine Turbidity Clear (Clear) 11/19/16 16:15 Urine pH 5.0 (5.0-7.0) 11/19/16 16:15 Ur Specific [place] 1.013 (1.003-1.030) 11/19/16 16:15 Urine Protein 100 mg/dl mg/dL (Negative) 11/19/16 16:15 Urine Glucose (UA) Neg mg/dL (Negative) 11/19/16 16:15 Urine Ketones Tr mg/dL (Negative) 11/19/16 16:15 Urine Blood Lg (Negative) 11/19/16 16:15 Urine Nitrite Neg (Negative) 11/19/16 16:15 Urine Bilirubin Neg (Negative) 11/19/16 16:15 Urine Urobilinogen < 2.0 mg/dL (<2.0) 11/19/16 16:15 Ur Leukocyte Esterase Neg (Negative) 11/19/16 16:15 Urine WBC (Auto) 2.0 /HPF (0.0-6.0) 11/19/16 16:15 Urine RBC (Auto) 1.0 /HPF (0.0-6.0) 11/19/16 16:15 U Epithel Cells (Auto) 1.0 /HPF (0-13.0) 11/19/16 16:15 Urine Bacteria (Auto) 1+ /HPF (Negative) 11/19/16 16:15 Urine Mucus Few /HPF 11/19/16 16:15 Urine Opiates Screen Presumptive negative 11/19/16 16:15 Urine Methadone Screen Presumptive negative 11/19/16 16:15 Ur Barbiturates Screen Presumptive negative 11/19/16 16:15 Ur Phencyclidine Scrn Presumptive negative 11/19/16 16:15 Ur Amphetamines Screen Presumptive negative 11/19/16 16:15 U Benzodiazepines Scrn Presumptive negative 11/19/16 16:15 Urine Cocaine Screen Presumptive negative 11/19/16 16:15 U Marijuana (THC) Screen Presumptive negative 11/19/16 16:15 Drugs of Abuse Note Disclamer 11/19/16 16:15 Plasma/Serum Alcohol < 0.01 gm% (0-0.07) 11/19/16 Unknown
[2016-11-20] MEDS: VIMPAT 100 MG in NACL 0.9% 100 ML IV SCH (08:37)
[2016-11-20 08:48] LABS: Alanine Aminotransferase 13 units/L (7-56); Albumin 3.7 g/dL (3.9-5); Albumin/Globulin Ratio 1.1 %; Alkaline Phosphatase 52 units/L (35-129); Anion Gap 19 mmol/L; BUN/Creatinine Ratio 12.22; Blood Urea Nitrogen 11 mg/dL (7-17); Calcium 8.4 mg/dL (8.4-10.2); Carbon Dioxide 19 mmol/L (22-30); Chloride 104.9 mmol/L (98-107); Glucose 95 mg/dL (65-100); Potassium 3.5 mmol/L (3.6-5.0); Sodium 139 mmol/L (137-145); Total Protein 7.2 g/dL (6.3-8.2)
[2016-11-20 08:59] LABS: Basophils % (Auto) 0.3 % (0.0-1.8); Eosinophils % (Auto) 0.1 % (0.0-4.3); Hematocrit 28.6 % (30.3-42.9); Mean Corpuscular HGB Conc 32 % (30-34); Mean Corpuscular Volume 71 fl (79-97); Platelet Count 177 K/mm3 (140-440); Red Blood Count 4.03 M/mm3 (3.65-5.03); Red Cell Distribution Width 15.6 % (13.2-15.2); White Blood Count 8.7 K/mm3 (4.5-11.0)
[2016-11-20 09:15] LABS: Mean Corpuscular Hemoglobin 22 pg (28-32)
[2016-11-20] MEDS: TRILEPTAL PO SCH (11:07)
[2016-11-20] MEDS: LOVENOX SUB-Q SCH (11:07)
[2016-11-20] MEDS: LaMICtal PO SCH (11:07)
--- NOTE | 2016-11-20 14:00 | Consultation ---
History of Present Illness - Reason for Consult Consult date: 11/20/16 seizure - History of Present Illness full work up of the seizures is ordered and I went over the orders we will get EEG plan to check MRI and the medications lamictal- vimpat-and keppra are the correct doses seizure control sould be good while on the above medications Medications and Allergies Allergies Allergy/AdvReac Type Severity Reaction Status Date / Time No Known Allergies Allergy Verified 11/19/16 16:13 Home Medications Medication Instructions Recorded Confirmed Last Taken Type Lacosamide [Vimpat] 50 mg PO Q12HR 11/19/16 11/19/16 Unknown History OXcarbazepine [Trileptal] 300 mg PO BID 11/19/16 11/19/16 Unknown History lamoTRIgine [LaMICtal] 100 mg PO BID 11/19/16 11/19/16 Unknown History Active Meds: Active Medications Acetaminophen (Tylenol) 650 mg PO Q4H PRN PRN Reason: Pain MILD(1-3)/Fever >100.5/[place] Bisacodyl (Dulcolax) 10 mg SC QDAY PRN PRN Reason: Constipation unrelieved by MOM Enoxaparin Sodium (Lovenox) 40 mg SUB-Q QDAY [facility] Last Admin: 11/20/16 11:07 Dose: Not Given Hydromorphone HCl (Dilaudid) 0.5 mg IV Q3H PRN PRN Reason: Pain , Severe (7-10) Dextrose/Sodium Chloride (D5ns) 1,000 mls @ 100 mls/hr IV DIRECT [facility] Last Admin: 11/20/16 01:00 Dose: 100 mls/hr Lacosamide 100 mg/ Sodium (Chloride) 110 mls @ 100 mls/hr IV Q12H [facility] Last Admin: 11/20/16 08:37 Dose: 100 mls/hr Lamotrigine (Lamictal) 100 mg PO BID [facility] Last Admin: 11/20/16 11:07 Dose: 100 mg Magnesium Hydroxide (Milk Of Magnesia) 30 ml PO Q4H PRN PRN Reason: Constipation Ondansetron HCl (Zofran) 4 mg IV Q8H PRN PRN Reason: N/V unrelieved by Reglan Oxcarbazepine (Trileptal) 300 mg PO BID [facility] Last Admin: 11/20/16 11:07 Dose: 300 mg Oxycodone/Acetaminophen (Percocet 5/325) 1 tab PO Q6H PRN PRN Reason: Pain, Moderate (4-6) Last Admin: 11/19/16 23:00 Dose: 1 tab Zolpidem Tartrate (Ambien) 5 mg PO QHS PRN PRN Reason: Insomnia Exam - Constitutional Vitals: Temp Pulse Resp BP Pulse Ox 98.5 F 78 16 124/76 99 11/20/16 08:29 11/20/16 08:29 11/20/16 08:29 11/20/16 08:29 11/20/16 08:29 Results - Labs CBC & Chem 7: 11/20/16 08:41 11/20/16 07:54 Labs: Abnormal lab results 11/19/16 11/19/16 11/20/16 Range/Units Unknown Unknown 07:54 Hgb 9.9 L (10.1-14.3) gm/dl Hct (30.3-42.9) % MCV 72 L (79-97) fl MCH 22 L (28-32) pg RDW 16.3 H (13.2-15.2) % Lymph % (Auto) (13.4-35.0) % [place] % (Auto) (0.0-7.3) % Lymph # (1.2-5.4) K/mm3 Seg Neutrophils % (40.0-70.0) % Seg Neuts % (Manual) 94.0 H (40.0-70.0) % Lymphocytes % (Manual) 4.0 L (13.4-35.0) % Seg Neutrophils # Man 9.3 H (1.8-7.7) K/mm3 Lymphocytes # (Manual) 0.4 L (1.2-5.4) K/mm3 Potassium 3.5 L D (3.6-5.0) mmol/L Carbon Dioxide 15 L 19 L (22-30) mmol/L AST 46 H (5-40) units/L Albumin 3.7 L (3.9-5) g/dL 11/20/16 Range/Units 08:41 Hgb 9.0 L (10.1-14.3) gm/dl Hct 28.6 L (30.3-42.9) % MCV 71 L (79-97) fl MCH 22 L (28-32) pg RDW 15.6 H (13.2-15.2) % Lymph % (Auto) 13.0 L (13.4-35.0) % [place] % (Auto) 8.7 H (0.0-7.3) % Lymph # 1.1 L (1.2-5.4) K/mm3 Seg Neutrophils % 77.9 H (40.0-70.0) % Seg Neuts % (Manual) (40.0-70.0) % Lymphocytes % (Manual) (13.4-35.0) % Seg Neutrophils # Man (1.8-7.7) K/mm3 Lymphocytes # (Manual) (1.2-5.4) K/mm3 Potassium (3.6-5.0) mmol/L Carbon Dioxide (22-30) mmol/L AST (5-40) units/L Albumin (3.9-5) g/dL
[2016-11-21] MEDS: D5NS 1,000 ML IV SCH (01:10)
[2016-11-21] MEDS: VIMPAT 100 MG in NACL 0.9% 100 ML IV SCH ×2 (08:33→09:45)
--- NOTE | 2016-11-21 09:37 | Discharge Summary ---
Providers - Providers Date of Admission: 11/19/16 20:09 Attending physician: RAMO JOSHI MD 11/20/16 21:29 Consult to Case Management [CONS] Routine Services Needed at Discharge: Java Support Engineer Notified:: COPY GIVEN TO CM Additional Physician Instructions: Medication assistance Primary care physician: SKILL LABOR Hospitalization Condition: Stable Hospital course: 51-year-old female here with complaint of seizure. Patient has known history of seizures and has had, according to family, 9 seizures today. Each seizure has been approximately 1-2 minutes in length. It is tonic-clonic in nature. Prior to this today she's not had a seizure for over a month. She is on 3 seizure medications. She is followed by neurologist in [place]. According to family she states that she has not been feeling well today. No fevers chills nausea vomiting. Arrival she is postictal. EMS gave her 2 mg of Ativan in the ambulance. Patient seen and examined, in no acute distress. she confesses that because she just lost her job and not sure how to get her meds, she stopped taking them so they dont run out. she did not take it for 5 days. Will continue current treatment for Seziure will consult case management to see if there is options for cheaper meds, goodrx , pharmaceutical discounts Uncontrolled seizures Patient postictal Continue on IV Vimpat and Lamictal PO BID. Patient has severe side effects with Keppra-hence keppra not initiatd. We will get MRI if Neurology recommend Nothing by mouth IV fluid hydration Neurology consult Supportive care HTN (hypertension) Patient not on antihpertensive medication. We will initiate if necessary Closely monitor blood pressure Right upper extremity swelling VL Doppler of the right upper extremity ordered to rule out DVT Apply warm compresses to the affected area. Noncompliance Patient noncompliance with her seizure medication counseling done Disposition: DC-01 TO HOME OR SELFCARE Time spent for discharge: 35 mins Core Measure Documentation - Palliative Care Palliative Care/ Comfort Measures: Not Applicable - Core Measures Any of the following diagnoses?: none - VTE Discharge Requirements Deep Vein Thrombosis/Pulmonary Embolism Present on Admission: No Exam - Constitutional Vitals: Temp Pulse Resp BP Pulse Ox 98.0 F 77 18 143/87 97 11/21/16 07:46 11/21/16 07:46 11/21/16 07:46 11/21/16 07:46 11/21/16 07:46 General appearance: Present: no acute distress - EENT Eyes: Present: PERRL, EOM intact - Neck Neck: Present: supple, normal ROM - Respiratory Respiratory effort: normal Respiratory: bilateral: CTA - Extremities Extremities: no ischemia, pulses intact, pulses symmetrical Peripheral Pulses: within normal limits - Abdominal General gastrointestinal: Present: soft, non-distended, normal bowel sounds - Integumentary Integumentary: Present: clear, warm, dry - Musculoskeletal Musculoskeletal: strength equal bilaterally - Psychiatric Psychiatric: appropriate mood/affect, intact judgment & insight, cooperative - Neurologic Neurologic: CNII-XII intact - Allied Health Allied health notes reviewed: nursing Plan Activity: advance as tolerated, fall precautions, other (no driving according to [place] [employer] TILL 6 MONTHS AND CLEARED BY NEUROLOGY) Diet: regular Special Instructions: record daily weights, record daily BP diary Follow up with: PRIMARY CARE, [Primary Care Provider] - 3-5 Days WALLACE TROTTER MD [Staff Physician] - 7 Days Prescriptions: Lacosamide [Vimpat] 50 mg PO Q12HR #60 tablet lamoTRIgine [LaMICtal] 100 mg PO BID #60 tablet OXcarbazepine [Trileptal] 300 mg PO BID #60 tablet
[2016-11-21] MEDS: TRILEPTAL PO SCH (09:43)
[2016-11-21] MEDS: LOVENOX SUB-Q SCH ×2 (09:43→09:50)
[2016-11-21] MEDS: LaMICtal PO SCH (09:44)
--- NOTE | 2016-11-21 11:11 | Vascular Lab Report ---
RIGHT UPPER EXTREMITY VENOUS DUPLEX: REASON FOR EXAM: Swelling of the right upper extremity COMMENTS ON THE RIGHT: All arm veins visualized are freely compressible without evidence of internal echogenicity. The subclavian and internal jugular veins are free of thrombus. Flow is spontaneous and phasic throughout. COMMENTS ON THE LEFT: The subclavian and internal jugular veins are free of thrombus. IMPRESSION: No evidence of acute or chronic deep venous thrombosis in the right upper extremity.
--- NOTE | 2016-11-21 11:27 | Magnetic Resonance Report ---
MRI OF THE BRAIN WITHOUT CONTRAST: HISTORY: Seizure PROCEDURE: Multiplanar, multisequence MR imaging of the brain without IV contrast was performed. FINDINGS: No comparison at this facility. There are scattered foci of increased T2 signal in the subcortical white matter bilaterally. This is most pronounced in the right posterior frontal lobe and left posterior temporal lobe. The remaining brain parenchyma demonstrates normal signal on all sequences. No evidence for acute ischemia, hemorrhage or mass. No chronic infarct or extra-axial fluid collection. The midline structures are central. The basal cisterns are patent. Normal ventricular size. The medial temporal lobes are unremarkable. The orbital cavities and sella turcica demonstrate no abnormality. The visualized paranasal sinuses and mastoid air cells are well aerated. IMPRESSION: No acute intracranial process. No mass lesion. Nonspecific T2 signal abnormalities in the white matter as outlined above. This probably represents mild chronic microvascular ischemic disease. Other etiologies could be considered.
[2016-11-21 16:43] VITALS: BP 155/98
[2016-11-21] MEDS ORDERED: VIMPAT PO SCH (22:00)
== END 2016-11-21 18:15 | disposition home or self-care (01) | DRG 101 ==
LOC: ED 16:03 → 3A 20:09
PROVIDERS: ADMIT Internal Medicine; ATTEND Internal Medicine
DX: R56.9 Unspecified convulsions (principal); I10 Essential (primary) hypertension; Z91.19 Patient's noncompliance with other medical treatment and regimen
CPT/HCPCS: 36415; 70551; 71010; 80053; 80307; 80320; 81001; 85007; 85025; 95819; 96365; 96366; C9254; G0480; J1650; J1953; J2060; J7030; J7042